=== PATIENT | male | born 1960 | race Caucasian/White ===

== ENCOUNTER 2018-05-15 06:30 | Day surgery (SDC) | payer OTHER ==
[~2018-05-15] VITALS: Ht 172.7 cm; Wt 93.0 kg
[~2018-05-15 06:30] MED LIST: LIP20 PO; LISI-600 PO; MOTRIN
[2018-05-15] MEDS ORDERED: GLYCOPYRROLATE 0.2 MG/ML VIAL ONE (07:30)
[2018-05-15] MEDS ORDERED: SIMETHICONE 40 MG/0.6 ML ML ONE (07:31)
[2018-05-15] MEDS: MEPERIDINE HCL/PF 100 MG/ML AMP ONE ×2 (07:35→07:39)
[2018-05-15] MEDS: MIDAZOLAM HCL 5 MG/5 ML VIAL ONE ×3 (07:35→07:37)
[2018-05-15 09:28] VITALS: BP_SYST 145
== END 2018-05-15 23:50 | disposition home or self-care (01) ==
LOC: SMU 06:30 → SDS 06:30
PROVIDERS: ATTEND Colon & Rectal Surgery
DX: Z12.11 Encounter for screening for malignant neoplasm of colon (principal); K63.5 Polyp of colon; K57.30 Diverticulosis of large intestine without perforation or abscess without bleeding; Z86.010 Personal history of colon polyps; C44.310 Basal cell carcinoma of skin of unspecified parts of face; I10 Essential (primary) hypertension; E78.5 Hyperlipidemia, unspecified; Z98.890 Other specified postprocedural states; Z80.7 Family history of other malignant neoplasms of lymphoid, hematopoietic and related tissues; Z68.31 Body mass index [BMI] 31.0-31.9, adult; Z79.899 Other long term (current) drug therapy; Z87.891 Personal history of nicotine dependence
CPT/HCPCS: 45380; J2175; J2250; J7030; 88305; J3490